=== PATIENT | female | born 1935 | race Caucasian/White ===

== ENCOUNTER 2019-09-29 13:00 | Inpatient (IN) | payer OTHER ==
[2019-09-29] VITALS (8 sets, daily range): BP systolic 64–119; BP diastolic 32–65
[~2019-09-29] VITALS: Ht 162.6 cm; Wt 74.8 kg
[2019-09-29] MEDS ORDERED: ESCITALOPRA5 MG/5 ML PO (13:17)
[2019-09-29] MEDS ORDERED: LIPITOR10 MG PO (13:18)
[2019-09-29] MEDS ORDERED: COZAAR 25 MG TA25 M2 PO (13:18)
[2019-09-29 13:42] LABS: MCH 30.8 pg (26.0-34.0); MCHC 31.7 g/dL (28.0-37.0); NUCLEATED RBCS 0 /100WBC; PLATELET COUNT* 254 thou/uL (150-400); RBC 2.16 mil/uL (4.20-5.00); RDW-CV 22.4 % (10.5-14.5); WBC 17.2 thou/uL (4.0-11.0)
[2019-09-29 13:49] LABS: HEMOGLOBIN 6.7 gm/dL (12.0-15.0)
[2019-09-29 13:52] LABS: APTT 31.1 Seconds (25.0-31.3); INR 1.1; PROTIME 11.5 Seconds (9.20-11.50)
[2019-09-29 13:53] LABS: CALCIUM 8.4 mg/dL (8.5-10.1); CREATININE 1.3 mg/dL (0.6-1.3); POTASSIUM 3.7 mmol/L (3.5-5.1)
[2019-09-29 14:02] LABS: ALBUMIN 2.8 g/dL (3.4-5.0); MAGNESIUM 2.2 mg/dL (1.8-2.4); TOTAL BILIRUBIN 1.5 mg/dL (<0.1-1.0); TOTAL PROTEIN 7.3 g/dL (6.4-8.2)
[2019-09-29 14:21] LABS: ABSOLUTE LYMPHOCYTES 0.9 thou/uL (0.8-5.3); ABSOLUTE MONOCYTES 0.5 thou/uL (0.0-1.2); ABSOLUTE NEUTROPHILS 15.8 thou/uL (1.6-8.1); METAMYELOCYTES 2 %; MYELOCYTES 3 %
[2019-09-29 14:22] LABS: ANISOCYTOSIS 2+; PLATELET ESTIMATE ADEQUATE; POIKILOCYTOSIS 2+; POLYCHROMASIA 1+
[2019-09-29 15:53] LABS: BE -10.4 mmol/L (-2 to +3); PO2 78.4 mmHg (75.0-100.0)
[2019-09-29 15:54] LABS: PCO2 59.2 mmHg (35.0-45.0)
[2019-09-29 15:59] LABS: pH 7.109 (7.340-7.450)
[2019-09-29 17:06] LABS: INFLUENZA A ANTIGEN Negative (Negative); INFLUENZA B ANTIGEN Negative (Negative)
[2019-09-29 22:22] LABS: HEMATOCRIT 22.2 % (37.0-47.0); HEMOGLOBIN 7.2 gm/dL (12.0-15.0)
[2019-09-29 22:40] LABS: ABSOLUTE LYMPHOCYTES 0.3 thou/uL (0.8-5.3); ABSOLUTE MONOCYTES 0.3 thou/uL (0.0-1.2); ABSOLUTE NEUTROPHILS 17.2 thou/uL (1.6-8.1); BASOPHILS 0.1 %; HEMATOCRIT 22.2 % (37.0-47.0); HEMOGLOBIN 7.2 gm/dL (12.0-15.0); LYMPHOCYTES 1.5 %; MCH 30.4 pg (26.0-34.0); MCHC 32.4 g/dL (28.0-37.0); MONOCYTES 1.6 %; MPV 9.8 fl. (7.2-11.1); NUCLEATED RBCS 0 /100WBC; PLATELET COUNT* 224 thou/uL (150-400); POLYS 96.8 %; RBC 2.36 mil/uL (4.20-5.00); RDW-CV 25.4 % (10.5-14.5); WBC 17.8 thou/uL (4.0-11.0)
[2019-09-29 23:04] LABS: PCO2 47.3 mmHg (35.0-45.0); pH 7.323 (7.340-7.450)
[2019-09-29 23:08] LABS: PO2 26.1 mmHg (75.0-100.0)
[2019-09-30] VITALS (7 sets, daily range): BP systolic 95–151; BP diastolic 43–58
--- NOTE | 2019-09-30 08:03 | NUR ---
PT CARE ASSUMED AT 1930. SAT MAINTAINED IN BIPAP. PT IS UNCOPERATIVE. DENIES PAIN. CALL LIGHT WITHIN REACH AND BED IN LOW POSITION. ALERT AND ORIENTED X4. BP LOW, PHYSICIAN INFORMED, ORDERS FOLLOWED. HOURLY ROUNDING DONE FOR PT SAFETY.
--- NOTE | 2019-09-30 10:58 | EKG ---
[place] [address] ELECTROCARDIOGRAM REPORT Name: FARHAD IVAN Room: [address] ADM IN M.R.#: [id number] Admission: 09/29/19 Attend Phys: Raf Perez MD Discharge: Date of : 39 Report #: [id number] THIS REPORT FOR: //name// [facility] ED Test Date: 2019-09-29 Test Time: 13:13:24 Pat Name: FARHAD IVAN Department: Room: [facility] Gender: F Tractor Trailer Operator: DRU : 1935 Requested By: Luis Carlos Goyal Order Number: [id number] MD: Geovanny Singh Measurements Intervals [place] Rate: 116 P: -13 GA: 146 QRS: 51 QRSD: 87 T: 241 QT: 277 QTc: 385 Interpretive Statements Sinus tachycardia Multiple premature complexes, vent & supraven Aberrant complex Probable LVH with secondary repol abnrm Repol abnrm, global ischemia, diffuse leads No previous ECG available for comparison Electronically Signed On 09-30-2019 10:58:22 PRINTING ROLLER POLISHER by Geovanny Singh [email or web address] <ELECTRONICALLY SIGNED> By: Geovanny Singh MD, FACC 09/30/19 1058 1313 1313 Geovanny Singh MD, FAC /EPI
--- NOTE | 2019-09-30 14:30 | NUR ---
MET WITH PT AND DTR/LUIGI. PT ON BIPAP SO DTR ANSWERED QUESTIONS. PT LIVES WITH LUIGI. SHE IS NORMALLY FAIRLY INDEPENDENT. DTR STATES PT IS A VERY 'PRIVATE' PERSON AND DOES HER OWN ADLS, BATHING AND DRESSING. DTR DOES IADLS IN HOME AND DRIVES. PT HAS HAD HH IN PAST BUT CANNOT REMEMBER NAME OF AGENCY. THERE ARE STAIRS TO ENTER THE HOME AND PT IS ABLE TO NEGOTIATE THEM. USES WALKER, HAS 2. SCOOTER, NEBULIZER, GRAB BARS, HOSPITAL BED, TOILET RISER AND RAILS AT [employer]. PT DOESN'T HAVE A DPOA, BUT DTR THINKS SHE MIGHT BE INTERESTED IF DISCUSSED MORE. STATES IN THE PAST PT NOT WILLING TO GIVE ANYONE 'POWER' OVER HER. CM TO FOLLOW
[2019-09-30 14:55] LABS: CREATININE 1.4 mg/dL (0.6-1.3); POTASSIUM 3.2 mmol/L (3.5-5.1)
--- NOTE | 2019-09-30 15:05 | 2DMMODE ---
[place] [address] 2 D/M-MODE ECHOCARDIOGRAM Name: FARHAD IVAN Room: [address] IN [facility]#: [id number] Admission: 09/29/19 Attend Phys: Raf Perez, Discharge: Date of : 39 Date of Service: 09/30/19 1504 Report #: [id number] THIS REPORT FOR: //name// APPROVED REPORT Study performed: 09/30/2019 11:34:17 EXAM: Comprehensive 2D, Doppler, and color-flow Echocardiogram Patient Location: In-Patient Room #: [facility] Status: routine BSA: 1.70 HR: 119 bpm BP: 106/43 mmHg Rhythm: NSR Other Information Study Quality: Good Indications Dyspnea 2D Dimensions IVSd: 10.64 (7-11mm) LVOT Diam: 19.00 (18-24mm) LVDd: 52.70 mm PWd: 10.62 (7-11mm) Ascending Ao: 28.32 (22-36mm) LVDs: 29.40 (25-40mm) Aortic Root: 25.70 mm Volumes Left Atrial Volume (Systole) LA ESV Index: 27.00 mL/m2 Aortic Valve AoV Peak Jacoby.: 1.94 m/s AO Peak Gr.: 15.07 mmHg LVOT Max P.49 mmHg AO Mean Gr.: 8.00 mmHg LVOT Mean P.12 mmHg LVOT Max V: 1.27 m/s AO V2 VTI: 34.53 cm LVOT Mean V: 0.80 m/s LOLIS (VTI): 2.07 cm2 LVOT V1 VTI: 25.26 cm Mitral Valve E/A Ratio: 0.94 MV Decel. Time: 161.61 ms MV E Max Jacoby.: 1.26 m/[place] [address] 2 D/M-MODE ECHOCARDIOGRAM Name: FARHAD IVAN Room: [address] IN .R.#: [id number] Admission: 09/29/19 Attend Phys: Raf Perez, Discharge: Date of : 39 Date of Service: 09/30/19 1504 Report #: [id number] MV PHT: 46.87 ms MVA (PHT): 4.69 cm2 TDI E/Lateral E': 15.75 E/Medial E': 12.60 Medial E' Jacoby.: 0.10 m/s Lateral E' Jacoby.: 0.08 m/s Pulmonary Valve PV Peak Jacoby.: 1.09 m/s PV Peak Gr.: 4.79 mmHg Tricuspid Valve RAP Estimate: 5.00 mmHg TR Peak Gr.: 35.19 mmHg RVSP: 40.00 mmHg PA Pressure: 40.00 mmHg Left Ventricle The left ventricle is normal size. There is normal LV segmental wall motion. Mild concentric left ventricular hypertrophy. Left ventricular systolic function is normal. LVEF is 55-60%. Transmitral Doppler flow pattern suggests restrictive physiology. Right Ventricle The right ventricle is normal size. The right ventricular systolic function is normal. Atria The left atrium size is normal. The right atrium size is normal. Aortic Valve Mild aortic valve sclerosis. No aortic regurgitation is present. There is no aortic valvular stenosis. Mitral Valve The mitral valve is normal in structure. Mild mitral regurgitation. No evidence of mitral valve stenosis. Tricuspid Valve The tricuspid valve is normal in structure. Mild tricuspid regurgitation. The RVSP is 40-45 mmHg. Pulmonic Valve The pulmonary valve is normal in structure. There is no pulmonic [place] [address] 2 D/M-MODE ECHOCARDIOGRAM Name: FARHAD IVNA Room: [address] [facility]#: [id number] Admission: 09/29/19 Attend Phys: Raf Perez, Discharge: Date of : 39 Date of Service: 09/30/19 1504 Report #: [id number] Great Vessels The aortic root is normal in size. IVC is normal in size and collapses >50% with inspiration. Pericardium There is no pericardial effusion. <Conclusion> The left ventricle is normal size. Mild concentric left ventricular hypertrophy. Left ventricular systolic function is normal. LVEF is 55-60%. Transmitral Doppler flow pattern suggests restrictive physiology. Mild aortic valve sclerosis. There is no aortic valvular stenosis. Mild mitral regurgitation. Mild tricuspid regurgitation. The RVSP is 40-45 mmHg. <ELECTRONICALLY SIGNED> By: Geovanny Singh MD, FACC 09/30/19 1504 1504 1504 Geovanny Singh MD, FACC /INF
--- NOTE | 2019-09-30 17:53 | NUR ---
CAITLIN RESTING IN BED. BIPAP USAGE PRN TODAY. OFF BIOPAP AND ON 3L NASAL CANULA FOR ABOUT 6 HOURS TODAY. SINUS RHYTHM TO SINUS TACH TODAY. DOES NOT WANT NEEDLE STICKS FOR LAB DRAWS [place] IS WILLING TO HAVE IT DONE. DNR STATUS ADRESSED TODAY. HOURY ROUNDONG COMPLETED FOR PATIENT SAFETY.
[2019-10-01] VITALS: BP 144/60
[2019-10-01 04:25] VITALS: BP 117/71
[2019-10-01 05:10] LABS: ABSOLUTE LYMPHOCYTES 0.4 thou/uL (0.8-5.3); ABSOLUTE MONOCYTES 0.3 thou/uL (0.0-1.2); ABSOLUTE NEUTROPHILS 7.2 thou/uL (1.6-8.1); HEMATOCRIT 23.1 % (37.0-47.0); HEMOGLOBIN 7.6 gm/dL (12.0-15.0); LYMPHOCYTES 5.7 %; MCH 30.6 pg (26.0-34.0); MCHC 32.9 g/dL (28.0-37.0); MCV 92.9 fL (80.0-100.0); MONOCYTES 3.4 %; MPV 8.9 fl. (7.2-11.1); NUCLEATED RBCS 1 /100WBC; PLATELET COUNT* 214 thou/uL (150-400); POLYS 90.9 %; RBC 2.48 mil/uL (4.20-5.00); RDW-CV 24.7 % (10.5-14.5); WBC 7.9 thou/uL (4.0-11.0)
[2019-10-01 05:27] LABS: CALCIUM 8.2 mg/dL (8.5-10.1); CREATININE 1.3 mg/dL (0.6-1.3); POTASSIUM 3.7 mmol/L (3.5-5.1)
--- NOTE | 2019-10-01 06:16 | NUR ---
PATIENT SHOWING LITTLE PROGRESS TOWARD GOALS THIS SHIFT. PATIENT IS VERBALLY ABUSIVE TOWARD STAFF. PATIENT HAS CALLED [employer]OMOT[employer] SERVICE WRITER[employer]S "DISGUSTING" "HORRIBLE PEOPLE" "FUCKING TERRIBLE". PATIENT REPEATEDLY EXPRESSES DESIRE TO LEAVE THE HOSPITAL AND QUESTIONS HER OUTLOOK ON HER HEALTH. PATIENT WAS OFF BIPAP FOR ABOUT 3 HOURS UNTIL GETTING HERSELF WORKED UP ABOUT HAVING BLOOD DRAWN AGAIN. PATIENT DEVELOPED DIFFICULTY BREATHING AROUND 0500 AND HAD TO BE PLACED ON BIPAP AGAIN AT THAT TIME. PATIENT IS INCONTINENT AND EXPRESSES HATEFUL REMARKS TOWARD STAFF WHEN BEING CLEANED.
[2019-10-01 07:30] VITALS: BP 137/49
[2019-10-01 07:32] VITALS: BP 137/49
[2019-10-01 12:00] VITALS: BP 140/65
--- NOTE | 2019-10-01 12:19 | NUR ---
CONTINUE TO FOLLOW, MET [facility] PT. SHE WAS FRUSTRATED WITH CARES, NOT IMPROVING AND PRAYING FOR ANSWERS. SUPPORT GIVEN. DISCUSSED WITH NURSE. PT'S MAIN C/O TODAY WAS RIGHT EAR PAIN, NURSE AWARE AND STATED PT HAS HAD TYLENOL. PT IS VERY ADAMANT ABOUT HER RIGHTS AND NEEDS, STATES SHE MANAGES WELL AT HOME AND MAKES HER OWN DECISIONS. UPDATED DR WITH PT'S EAR CONCERN ALSO. NOT APPROPRIATE TIME TO DISCUSS DPOA. DID NOTE PT IS DNR. WILL FOLLOW
[2019-10-01 14:06] LABS: GLOBULIN TOTAL 3.4 g/dL (2.2-3.9); M-SPIKE Not Observed g/dL (Not Observed)
--- NOTE | 2019-10-01 15:59 | NUR ---
ASSUMED CARE OF PT AT 0730. PT A&0X4, UNCOOPERATIVE AND ARGUMENTATIVE THIS AM- MORE COOPERATIVE AND PLEASANT THIS AFTERNOON. PT COMPLAINED OF PAIN TO RIGHT EAR- TREATED WITH PRN TYLENOL WITHOUT RELIEF. DR PEDERSON NOTIFIED. ORDERS RECEIVED FOR NAPROXEN PER PT REQUEST AND GIVEN PER EMAR. PT MADE MED SURG STATUS. ON BIPAP THIS AM AND PRN- ON 2L NC SAT UPPER 90'S. PT HAS PRODUCTIVE COUGH- COARSE AND WHEEZY LUNG SOUNDS NOTED. PT INCONT OF URINE. PT UP WITH 1 ASSIST-WEAKNESS NOTED. CARDIOLOGY SIGNED OFF-RECOMMENDING OUTPT STRESS TESTING AT DISCHARGE. AM ASSESSMENT CHARTED. MEDICATIONS PER DEC. PT REFUSED TO BE REPOSITIONED THIS AM- EDUCATION GIVEN. PT COOPERATIVE WITH TURNS THIS AFTERNOON. HOURLY ROUNDING OBSERVED. BED IN LOW POSITION. BED ALARM IN PLACE. FALL PRECAUTIONS IN PLACE. CALL LIGHT WITHIN REACH. WILL CONTINUE PLAN OF CARE.
--- NOTE | 2019-10-01 18:57 | NUR ---
PT TRANSFERRED TO ROOM 311 VIA BED WITH ALL BELONGINGS AND CHART. REPORT GIVEN TO MICHAEL JOSEPH. DAUGHTER, LUIGI, NOTIFIED OF TRANSFER.
[2019-10-01 21:00] VITALS: BP 122/57
--- NOTE | 2019-10-02 05:53 | NUR ---
PATIENT WAS A TRANSFER FROM [facility] RIGHT AT SHIFT CHANGE. BEGINNING OF SHIFT SHE WAS VERY ANGRY AND UPSET STATING NO ONE WAS TELLING HER WHAT WAS GOING ON. DAUGHTER WAS IN THE ROOM AND STATED SHE WOULD TAKE HER HOME IF THATS REALLY WHAT HER MOM WANTED. EXPLAINED TO PATIENT AND DAUGHTER THAT IT WAS IN HER BEST INTEREST TO STAY IN THE HOSPITAL DUE TO OXYGEN AND BIPAP NEEDS. PATIENT WAS AGREEABLE TO STAY. PATIENT STILL YELLS AT STAFF WHEN CLEANING HER UP STATING WE ARE HURTING HER AND AND WHY CANT WE JUST LEAVE HER ALONE AND LET HER . IV ANTIBIOTICS WERE GIVEN ORDERED. PATIENT WORE BIPAP FOR A COUPLE HOURS AND IS BACK ON OXYGEN AT 2L PER NASAL CANNULA. WILL CONTINUE TO MONITOR.
[2019-10-02 08:05] VITALS: BP 96/66
--- NOTE | 2019-10-02 15:15 | CON ---
[address] [address] CONSULTATION Name: FARHAD IVAN Room: [address] IN M.R.#: [id number] Admission: 09/29/19 Attend Phys: Raf Perez MD Discharge: Date of : 37 Report #: [id number] THIS REPORT FOR: //name// CC: Raf Cody MD DICTATED BY: Hailey Hurley [facility] DATE OF SERVICE: 09/30/2019 Please note at the time of this dictation, the patient was seen and physically examined by myself. REASON FOR CONSULTATION: Acute anemia. HISTORY OF PRESENT ILLNESS: This is an 83-year-old female who had recently had some cold-like symptoms a week prior to her coming to the hospital to the Emergency Room where she was having increasing shortness of breath, audible wheezing. She was coughing up a lot of phlegm and was having a difficult time completing her sentences to conversation. The patient was last seen by us in 2009 in which she underwent an EGD and colonoscopy. Colonoscopy showed a tubular adenoma with repeat in 5 years. EGD showed an esophageal stricture. She was dilated with 48-Bulgarian and has not been seen since 2009. In talking with her daughter, she states that she is chronically anemic running in the 7 to 8 most of the time. On admission, hemoglobin was 6.7. She got a unit of blood. She continues to have increasing shortness of breath in conversation and at the bedside and had been on BiPAP overnight. ALLERGIES: No known drug allergies. MEDICATIONS FROM HOME: Lipitor, Lexapro, and Cozaar. PAST MEDICAL HISTORY: CHF, COPD, anemia, high blood pressure, high cholesterol. PAST SURGICAL HISTORY: She has had a stent and endarterectomy done. FAMILY HISTORY: Negative for any GI or female cancers. SOCIAL HISTORY: Never has smoked. No alcohol and no illegal drug use. REVIEW OF SYSTEMS: Twelve-point review of systems is essentially negative except what is mentioned in the HPI. PHYSICAL EXAMINATION: VITAL SIGNS: Temperature 36.7, pulse 79, respirations 16, [place] [address] CONSULTATION Name: IVANFARHAD J Room: [address] IN [facility]#: [id number] Admission: 09/29/19 Attend Phys: Raf Perez MD Discharge: Date of : 37 Report #: [id number] 106/43. HEART: Regular rate and rhythm. LUNGS: Audible wheezing and shortness of breath noted at bedside. ABDOMEN: Soft, positive bowel sounds in all 4 quadrants with no masses or tenderness noted. LABORATORY DATA: Hemoglobin after a unit of blood is 7.2, white count is 17.8, platelets 224. B12 is 1264. Ferritin is 231. Iron sat is 13. Iron is 25. Troponin is elevated at 0.91. Her BNP was elevated at 6505, BUN was 35. GFR was 39. Total bilirubin was 1.5, alkaline phosphatase 88, ALT 12, AST is 10. Chest x-ray showed cardiomegaly. IMPRESSION: 1. Acute on chronic anemia. 2. Respiratory failure. 3. Congestive heart failure. 4. Chronic obstructive pulmonary disease. 5. Leukocytosis. 6. Chronic kidney disease. PLAN: 1. The patient does not want any invasive procedures done, EGD or colonoscopy to evaluate her anemia. 2. We will check a soluble transferrin level. 3. Further recommendations to be made after that level has returned and Dr. Rothman has seen the patient. Thank you for allowing us to participate in this patient's care. Please do not hesitate to call with any questions in regard to this consult. <ELECTRONICALLY SIGNED> By: Pritesh Rothman MD 10/02/19 1515 1106 1211Pritesh Rothman MD /nt
[2019-10-02 16:00] VITALS: BP 106/54
[2019-10-02 17:37] LABS: HEMOGLOBIN 7.8 gm/dL (12.0-15.0)
[2019-10-02 17:39] LABS: HEMATOCRIT 24.5 % (37.0-47.0); MCH 30.4 pg (26.0-34.0); MCHC 32.1 g/dL (28.0-37.0); MCV 94.7 fL (80.0-100.0); NUCLEATED RBCS 0 /100WBC; PLATELET COUNT* 199 thou/uL (150-400); RBC 2.58 mil/uL (4.20-5.00); RDW-CV 24.8 % (10.5-14.5); WBC 7.6 thou/uL (4.0-11.0)
--- NOTE | 2019-10-02 17:40 | NUR ---
PATIENT RESTING IN BED. PATIENT HAD COMPLAINTS OF EAR PAIN THIS AM, NAPROXEN GIVEN WITH NO FURTHER COMPLAINTS OF PAIN. PATIENT IS UP WITH MODERATE ASSIST OF 1 WITH GAIT BELT AND WALKER. PATIENT HAS POOR APPETITE BUT DRINKS WELL. PATIENT DENIES ANY NEEDS AT THIS TIME. CALL LIGHT WITHIN REACH.
[2019-10-02 17:43] LABS: CALCIUM 7.9 mg/dL (8.5-10.1); CREATININE 1.8 mg/dL (0.6-1.3)
[2019-10-02 17:46] LABS: POTASSIUM 2.8 mmol/L (3.5-5.1)
--- NOTE | 2019-10-02 18:23 | EKG ---
[place] [address] ELECTROCARDIOGRAM REPORT Name: FARHAD IVAN Room: [address] ADM IN M.R.#: [id number] Admission: 09/29/19 Attend Phys: Raf Perez MD Discharge: Date of : 37 Report #: [id number] THIS REPORT FOR: //name// [facility] Test Date: 2019-10-02 Test Time: 16:41:15 Pat Name: FARHAD MARZENA Department: Room: [address] Gender: F Record Pressman: : 1935 Requested By: Armaan Acosta Order Number: [id number] Iar MD: Geovanny Singh Measurements Intervals [place] Rate: 108 P: 56 [place]: 167 QRS: 47 QRSD: 89 T: 214 QT: 290 QTc: 389 Interpretive Statements Sinus tachycardia Multiple premature atrial complexes Probable LVH with secondary repol abnrm Compared to ECG 09/29/2019 13:13:24 Aberrant conduction of supraventricular beat(s) no longer present Electronically Signed On 10-02-2019 18:22:39 PRODUCT APPLICATIONS ENGINEER by Geovanny Singh [email or web address] <ELECTRONICALLY SIGNED> By: Geovanny Singh MD, FACC 10/02/19 1822 1641 1641 Geovanny Singh MD, FAC /EPI
[2019-10-02 18:45] LABS: ABSOLUTE LYMPHOCYTES 1.7 thou/uL (0.8-5.3); ABSOLUTE MONOCYTES 0.5 thou/uL (0.0-1.2); ABSOLUTE NEUTROPHILS 5.4 thou/uL (1.6-8.1)
[2019-10-02 18:46] LABS: MICROCYTES 1+; OVALOCYTES 1+; PLATELET ESTIMATE ADEQUATE; TEARDROPS Occasional
[2019-10-02 18:47] LABS: ANISOCYTOSIS 2+; HYPOCHROMASIA 2+
[2019-10-02 18:48] LABS: SCHISTOCYTES Occasional
[2019-10-02 20:00] VITALS: BP 116/41
[2019-10-03] VITALS (7 sets, daily range): BP systolic 90–135; BP diastolic 48–65
--- NOTE | 2019-10-03 02:18 | NUR ---
ASSUMED CARE OF PT AFTER REPORT AT 1930. PT A&OX4. FORGETFUL. VSS. PHYSICAL ASSESMENT COMPLETED AND CHARTED. PT ON O2 AT 2L NC/BIPAP WHEN SLEEPING. PT DENIES ANY PAIN OR DISCOMFORT. PT HR 160'S. EKG SHOWS SVT. DR PEDERSON MADE AWARE. TRANSFERRED TO TELE VIA BED WITH BELONGINGS.
--- NOTE | 2019-10-03 05:34 | NUR ---
PATIENT TRANSFERRED TO UNIT AT APPROX 0215 WITH SUSTAINED HR OF 150-160'S. PATIENT ASYMPTOMATIC. PHYSICIAN NOTIFIED THAT IV METOPROLOL CANNOT BE GIVEN DUE TO LOW BLOOD PRESSURE. ORDER DC'D AND ORDER RECEIVED AND CARRIED OUT FOR AMIODARONE GTT AND BOLUS. PATIENT HEART RATE IMPROVING SLIGHTLY. CALL LIGHT WITHIN REACH
--- NOTE | 2019-10-03 11:41 | NUR ---
PT CALLED FOR ASSIST TO USE BR. ASSISTED PT TO BSC. PT BELIGERENT TO STAFF AND STATES SHE WANTS TO WALK TO BR. INSTRUCTED PT AND DTR THAT SHE IS TOO UNSTEADY,HR HIGH AND SOA TO SAFELY AMBULATE TO BR AT THIS TIME. PT ASSISTED TO BSC. PT INSISTS ON WEARING BRIEFS. PT AND DTR INSTRUCTED ON RISK OF SKIN BREAKDOWN AND STILL REQUEST TO WEAR BRIEFS
--- NOTE | 2019-10-03 11:56 | NUR ---
HF COUNSELING: ENTERED ROOM TO TALK ABOUT HEART FAILURE. GAVE PATIENT HANDOUT HIGHLIGHTING THE MEDICATION REGIMEN THE PATIENT IS CURRENT TAKING WHICH ONLY INCLUDES FUROSEMIDE AT THIS TIME. DISCUSSED THIS SPECIFIC MEDICATION HELPS HER BODY OR DIAGNOSIS INCLUDING HOW IT WORKS, HOW IT HELPS AND POSSIBLE SIDE EFFECTS. AT END OF DISCUSSION Pt. HAD NO QUESTIONS AT THIS TIME. ASKED THEM TO TALK TO INDUSTRIAL AERIAL INSTALLER OR PHARMACIST IF THEY HAVE ANY QUESTIONS POST DISCHARGE.
--- NOTE | 2019-10-03 12:19 | EKG ---
[place] [address] ELECTROCARDIOGRAM REPORT Name: FARHAD IVAN Room: [address] ADM IN M.R.#: [id number] Admission: 09/29/19 Attend Phys: Raf Perez MD Discharge: Date of : 37 Report #: [id number] THIS REPORT FOR: //name// [facility] Test Date: 2019-10-03 Test Time: 01:15:13 Pat Name: FARHAD IVAN Department: Room: [address] Gender: F Marketing Consultant: [id number] : 1935 Requested By: Raf Perez Order Number: [id number] Reading MD: Francois Zelaya Measurements Intervals [place] Rate: 166 P: 103 UT: 55 QRS: 33 QRSD: 91 T: 185 QT: 274 QTc: 456 Interpretive Statements Supraventricular tachycardia Ventricular premature complex LVH with secondary repolarization abnormality ST depression, probably rate related Compared to ECG 10/02/2019 16:41:15 Ventricular premature complex(es) now present ST (T wave) deviation now present Sinus tachycardia no longer present Atrial premature complex(es) no longer present Electronically Signed On 10-03-2019 12:19:45 CDL BULK DRIVER by Francois Zelaya [email or web address] <ELECTRONICALLY SIGNED> By: Francois Zelaya MD, [facility] 10/03/19 1219 4 4 Francois Zelaya MD, [facility] /EPI
--- NOTE | 2019-10-03 13:30 | NUR ---
PT BELIGERENT WITH PT AND REFUSED TO PARTICIPATE. ENCOURAGED PT TO MOVE WHILE IN BED. DISCUSSED POSSIBILITY OF REHAB UPON DC. PT STATES SHE WILL NOT GO TO REHAB UNIT OR SNF.
--- NOTE | 2019-10-03 14:11 | NUR ---
CONTINUE TO FOLLOW, MET WITH PT'S DTR/LUIGI. PLAN IS FOR PT TO RETURN TO HOME BUT IS VERY WEAK. THERAPY ORDERED. PT SLEEPING. IS ON AMIO GTT, DO NOT ANTICIPATE DC THIS WEEKEND. MAY NEED SNF IF PT AGREEABLE. WILL FOLLOW
--- NOTE | 2019-10-03 17:32 | NUR ---
PT NOT EATING THROUGHOUT SHIFT. PT STATES SHE DOES NOT LIKE THE FOOD BECAUSE IT IS TOO BLAND. ENCOURAGED FAMILY TO BRING FOOD IN. PT DRINKING WATER. PT REFUSES THERAPY. BELIGERENT TO STAFF WHEN ASSISTANCE OFFERED. DTR AT AND UPDATED ON PLAN OF CARE.AMIODARONE GTT INFUSING, PT INTERMITTENT AFLUTTER ON MONITOR
[2019-10-04 04:00] VITALS: BP 139/55
--- NOTE | 2019-10-04 06:12 | NUR ---
ASSUMED CARE OF PT AFTER REPORT AT 1930. PT A&OX4. VSS. PHYSICAL ASSESSMENT COMPLETED AND CHARTED. PT ON O2 AT 3L NC/BIPAP WHEN SLEEPING. PT TRACING ST/SR/PAC OM TELE. PT DENIES PAIN. PT REFUSED TURNS EVEN AFTER EDUCATION. PT HAS A CRITICAL RIDGE BLOOD GLUCOSE- DR PAYNE MADE AWARE WITH NEW ORDER. PT ABLE TO SLEEP WELL ON BED. CALL LIGHT WITHIN REACH.
[2019-10-04 08:30] VITALS: BP 95/43
[2019-10-04 12:01] VITALS: BP 102/48
[2019-10-04 15:37] VITALS: BP 108/57
[2019-10-04 20:00] VITALS: BP 116/49
[2019-10-05] VITALS (7 sets, daily range): BP systolic 81–128; BP diastolic 39–67
--- NOTE | 2019-10-05 02:09 | NUR ---
ASSUMED CARE OF PT AFTER REPORT AT 1930. PT A&OX4. FORGETFUL. VSS. PHYSICAL ASSESSMENT COMPLETED AND CHARTED. PT ON O2 AT 3L NC/BIPAP WHEN SLEEPING. PT TURNED TO SIDES. PT WITH EPISODES OF INCONTINENT BOWEL & BLADDER. DENIES ANY PAIN. PT ABLE TO SLEEP WELL ON BED. CALL LIGHT WITHIN REACH.
[2019-10-05 04:38] LABS: HEMATOCRIT 23.5 % (37.0-47.0); HEMOGLOBIN 7.7 gm/dL (12.0-15.0); MCH 30.1 pg (26.0-34.0); MCHC 32.6 g/dL (28.0-37.0); MCV 92.3 fL (80.0-100.0); MPV 8.8 fl. (7.2-11.1); RBC 2.55 mil/uL (4.20-5.00); RDW-CV 23.8 % (10.5-14.5); WBC 15.3 thou/uL (4.0-11.0)
[2019-10-05 05:19] LABS: CREATININE 1.3 mg/dL (0.6-1.3); POTASSIUM 4.3 mmol/L (3.5-5.1)
--- NOTE | 2019-10-05 17:06 | NUR ---
PT CARE ASSUMED AT 0730. ALERT AND ORIENTED X4 BUT FORGETFUL. DAUGHTER PRESENT AT BEDSIDE. PT IS GRUMPY WITH THE CARE OFFERED BY THE NURSING STAFF TO HER. INCONTINENT OF BOWEL AND BLADDER. EDUCATION GIVEN ABOUT TURNS BOTTOM IS RED, NEEDS REINFORCEMENT. CALL LIGHT WITHIN REACH AND BED IN LOW POSITION.
[2019-10-06 03:45] VITALS: BP 96/42
--- NOTE | 2019-10-06 07:39 | NUR ---
Pt is AOx4, running SR with PVCs/PACs on telemetry, respirations are even and unlabored. Pt is not in acute distress at this time.
[2019-10-06 08:11] VITALS: BP 115/39
--- NOTE | 2019-10-06 09:40 | NUR ---
ASSUMED CARE OF PT THIS AM AROUND 07- CORRECTIONS NURSE IN PLACE ORDERED, TRACING SR- UPON ASSESSMENT PT NOTED TO BE RESTING IN BED, EYES CLOSED- PT ARROUSABLE AND A&O X4 WITH SOME FORGETFULLNESS- INCONTIENT OF B/B- Q 2HOUR TURNS IN PLACE INDICATED- LCTA/DIMINISHED IN BASES, ABD BREATHING NOTED- DYSPNEA NOTED ON EXERTION- VSS, O2 SAT 96% ON 3L VIA NC- ABD SOFT/ROUND/NON-TENDER, BS X4 QUADS- PT NOTED TO HAVE HAD INCONTINENT LOOSE STOOL THIS AM- IV NOTED TO LEFT FA INTACT AND SL- IV ABT CHANGED TO PO CEFDINIR THIS AM WELL IV SOLU-MED TO PO PREDNISONE AND GIVEN PRESCIBED- CHEST X-RAY ORDERED THIS AM- EKG COMPLETED ORDERED AND PLACED ON CHART FOR VIEWING- CALL LIGHT AND PERSONAL BELONGINGS WITH IN REACH- BED ALARM IN PLACE AND WORKING FOR PT SAFETY/NEEDS- ALL NEEDS MET AT THIS TIME-WCTM
--- NOTE | 2019-10-06 11:04 | EKG ---
[place] [address] ELECTROCARDIOGRAM REPORT Name: FARHAD IVAN Room: [address] ADM IN M.R.#: [id number] Admission: 09/29/19 Attend Phys: Raf Perez MD Discharge: Date of : 39 Report #: [id number] THIS REPORT FOR: //name// [facility] Test Date: 2019-10-06 Test Time: 09:15:02 Pat Name: FARHAD IVAN Department: Room: [address] Gender: F Pen Maker: : 1935 Requested By: Chel Riley Order Number: [id number] Reading MD: Ollie Pearce Measurements Intervals [place] Rate: 81 P: 37 PA: 176 QRS: 32 QRSD: 91 T: 104 QT: 379 QTc: 440 Interpretive Statements Sinus rhythm Multiple premature complexes, supraven Probable LVH with secondary repol abnrm Compared to ECG 10/03/2019 01:15:13 Supraventricular tachycardia no longer present ST (T wave) deviation no longer present Electronically Signed On 10-06-2019 11:04:07 CLIENT SERVER DEVELOPER by Ollie Pearce [email or web address] <ELECTRONICALLY SIGNED> By: Ollie Pearce MD, [facility] 10/06/19 1104 4 4 Ollie Pearce MD, [facility] /EPI
[2019-10-06 12:06] VITALS: BP 88/41
--- NOTE | 2019-10-06 15:57 | NUR ---
WOUND NURSE: PATIENT SEEN TODAY TO ADDRESS LESION ON RIGHT HAND, LEFT HEEL, AND POSSIBLY BUTTOCKS. LEFT POSTERIOR HEEL WITH SKIN LESION CONTAINING PARTIAL THICKNESS TISSUE LOSS, SCANT SEROUS DRAINAGE, TENDER TO TOUCH, MEASURES 3.5 X 2.5 X 0.1 CM. CLEANSED WITH SOAP AND WATER, RINSED WITH WATER, THEN PATTED DRY. APPLIED LOTION TO PERIWOUND, APPLIED OIL EMULSION GAUZE TO WOUND BED, UNDER ABD, WRAPPED WITH KERLEX ROLL GAUZE AND SECURED WITH TAPE. PLAN TO CHANGE DRESSING EVERY 3 DAYS AND NEEDED. PATIENT PLACED IN HEELMEDIX HEEL PROTECTOR. HAS A 0.1 X 1.0 X 0.1 CM SKIN TEAR ON THE BACK OF THE RIGHT HAND. THERE IS NO DRAINAGED NOTED AND SKIN EDGES ARE WELL APPROXIMATED. BORDERED FOAM DRESSING IN PLACE FROM YESTERDAY AND REUSED . PATIENT VERY CANTANKEROUS AND REFUSING ANY FURTHER ASSESSMENT INCLUDING ASSESSMENT OF BUTTOCKS OR COCCYGEAL AREA.
[2019-10-06 17:09] VITALS: BP 82/42
[2019-10-06 20:00] VITALS: BP 116/48
[2019-10-07 00:38] VITALS: BP 92/39
--- NOTE | 2019-10-07 04:16 | NUR ---
Pt is aox4, running SR with PACs on telemetry, respirations are shallow, but unlabored. Pt is not in acute distress at this time.
[2019-10-07 04:30] VITALS: BP 100/36
--- NOTE | 2019-10-07 10:25 | NUR ---
PT REFUSING VS AND MEDICATIONS THIS AM. PT ANGRY AND CURSING STAFF.
[2019-10-07 12:15] VITALS: BP 140/37
--- NOTE | 2019-10-07 13:36 | NUR ---
LONG DISCUSSION WITH PT'S 2 DTRS/EDGAR AND LUIGI THIS AM RE: REFERRAL TO HOSPICE HOUSE. DTRS THOUGHT PT WOULD GO TO A HOSPICE HOUSE JAIL. EXPLAINED QUALIFIERS AND ALL OPTIONS FOR HOSPICE INCLUDING HOUSE, HOME AND LTC ALL WITH HOSPICE. THEY WERE ONLY OPEN TO HOUSE OPTION. AGAIN EXPLAINED THAT THAT IS ONLY FOR 5 DAYS OR SO AND THEN ANOTHER PLAN NEEDS TO BE IN PLACE. PT LIVES WITH DTR/LUIGI BUT SHE WORKS AND THERE IS NO ONE TO BE PT'S PRIMARY CAREGIVER. DTR/EDGAR PLANS TO RETURN HOME TO [place]. THEY ARE AGAINST LTC. OFFERED A HOSPICE HOUSE REFERRAL, PT NOT GETTING ANY COMFORT MEDS OR MEDS TO CONTROL SYMPTOMS THEREFORE WOULD NOT BE ELIGIBLE FOR HOSPICE [facility]. THEY WERE IN AGREEMENT WITH REFERRAL TO [facility] FOR RESPITE SHORT STAY AND EVAL. CALLED AND FAXED REFERRAL TO [facility], MARIEL CAME OUT AND MET WITH DTR/EDGAR AND PT. THEY ARE ABLE TO ACCEPT PT AT [place] FOR A 5 DAY RESPITE STAY AND SHE DID EXPLAIN TO THEM THAT ANOTHER PLAN NEEDS TO BE IN PLACE FOR AFTER THAT 5 DAYS AND THEIR SW WILL ASSIST. EDGAR WANTS TO TALK PLAN OVER WITH THE REST OF THE FAMILY AND HAVE AN ANSWER TOMORROW. BOTH DTRS VERY FOCUSED ON THINGS THAT HAVE OCCURRED DURING THIS STAY THAT THEY WERE UNHAPPY WITH. MUCH REDIRECTION NEEDED DURING CONVERSTAIONS. GILDA/PT EXPERIENCE AND MGR AWARE. SUPPORT OFFERED. WILL F/U TOMORROW WITH FAMILY AND PT
[2019-10-07 16:00] VITALS: BP 75/36
--- NOTE | 2019-10-07 16:51 | NUR ---
PT UNCOOPERATIVE THROUGHOUT THE DAY. REFUSING CARE. BECOMES ANGRY AND VERBALLY ABUSIVE TO STAFF. PT WAS INCONT OF B/B AND REFUSED TO BE CLEANED. EXPLAINED TO PT THAT I WOULD NOT LEAVE HER THAT WAY. PT CLEANED UP WHILE SHE WAS VERBALLY ABUSING STAFF. DAUGHTERS AT BEDSIDE THROUGHOUT THE DAY.
[2019-10-07 20:30] VITALS: BP 74/46
[2019-10-08] VITALS: BP 109/48
[2019-10-08 04:00] VITALS: BP 163/47
--- NOTE | 2019-10-08 05:42 | NUR ---
Pt is aox4, running SR with PACs on telemetry, respirations are even and unlabored. Pt is not in acute distress at this time.
[2019-10-08 08:30] VITALS: BP 122/42
--- NOTE | 2019-10-08 09:20 | NUR ---
assuming patient care report given patient seen at bedside, in recliner asleep
[2019-10-08 12:00] VITALS: BP 148/77
--- NOTE | 2019-10-08 13:05 | NUR ---
WOUND CARE NOTE: PATIENT HAD DECLINED TO ALLOW FOR ASSESSMENT OF THE SACRUM/COCCYX ON SUNDAY. AGAIN ATTEMPTED TO ASSESS AREA, BUT PATIENT DECLINED. STATING THERE WASN'T ANYTHING BACK THERE AND IT DID NOT HURT. ALLOWED ME TO CHANGE THE DRESSING TO THE LEFT HEEL. WOUND WITH PINK, MOIST WOUND BED. HAIR-WOUND APPEARS TO HAVE NEW EPITHELIUM. CLEANSED WITH WOUND CLEANSER, PATTED DRY. APPLIED OIL EMULSION GAUZE, ABD AND SECURED WITH KERLIX. SPOKE WITH PATIENT'S DAUGHTER. SHE STATED THE PATIENT HAS PSORIASIS AND SOMETIMES THE SKIN PEELS TOO MUCH REVEALING WOUNDS. THE DAUGHTER STATES THIS WOUND COMES AND GOES. RECOMMEND KEEP HEEL ELEVATED OFF BED TURN Q2 HOURS ENCOURAGE GOOD NUTRTION/HYDRATION NOTIFY WOUND RN IF PATIENT WILLING FOR ASSESSMENT OF THE SACRUM/COCCYX.
--- NOTE | 2019-10-08 13:27 | NUR ---
DISCUSSED WITH DR MORALES AND DTR/LUIGI. PT AND FAMILY IN AGREEMENT WITH DC TO [facility] , WILL PLAN DC TOMORROW. DTR AWARE. ALSO DISCUSSED LTC MEDICAID PENDING AND GAVE LIST OF FACILITIES FOR DTR TO CONSIDER. UPDATED [facility]. WILL ARRANGE DC ONCE ORDERS RECEIVED
[2019-10-08 16:00] VITALS: BP 89/36
[2019-10-08 20:00] VITALS: BP 88/51
[2019-10-09] VITALS: BP 91/45
[2019-10-09 04:00] VITALS: BP 108/45
--- NOTE | 2019-10-09 04:47 | NUR ---
PT CARE ASSUMED AT 1930. SAT MAINTAINED IN O2. ALERT AND ORIENTED X4 BUT FORGETFUL. CALL LIGHT WITHIN REACH AND BED IN LOW POSITION. HOURLY ROUNDING DONE FOR PT SAFETY.
[2019-10-09 08:15] VITALS: BP 158/53
--- NOTE | 2019-10-09 11:50 | NUR ---
DISCUSSED WITH DR MORALES, PT TO DC TODAY TO [facility] FOR RESPITE STAY. DTRS OUT LOOKING AT LTC OPTIONS AND CALL PLACED TO DTR/LUIGI, AWARE OF DC TODAY. PT IN AGREEMENT. OUTSIDE DNR SIGNED AND ON CHART WITH COPY TO GO WITH PT. 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 RN HAS NUMBER TO CALL REPORT. CHART COPIED. [id number] COMPLETED AND SENT WITH PT. ORDERS FAXED
[2019-10-09 12:21] VITALS: BP 148/52
[2019-10-09] MEDS ORDERED: CEFDINIR300 MG PO (12:27)
[2019-10-09] MEDS ORDERED: PANTOPRAZOLE SO40 M1 PO (12:27)
[2019-10-09] MEDS ORDERED: XANAX 0.5 MG0.5 MG PO (12:27)
[2019-10-09] MEDS ORDERED: GLUCOPHAGE500 MG PO (12:27)
[2019-10-09] MEDS ORDERED: PREDNISONE 10 M10 MG PO (12:27)
[2019-10-09] MEDS ORDERED: PULMICORT0.5 MG/2 M INH (12:27)
[2019-10-09] MEDS ORDERED: LEVALBUTER1.25 MG/0. INH (12:27)
[2019-10-09] MEDS ORDERED: LASIX 40 MG TAB40 M1 PO (12:27)
[2019-10-09] MEDS ORDERED: ASPIR 8181 MG PO (12:27)
[2019-10-09] MEDS ORDERED: NAPROXEN375 MG PO (12:27)
[2019-10-09] MEDS ORDERED: MUCUS RLF DM E1 EACH PO (12:27)
[2019-10-09] MEDS ORDERED: ONDANSETRON HCL4 M2 PO (12:27)
[2019-10-09] MEDS ORDERED: PACERONE 200 M200 M1 PO (12:27)
[2019-10-09] MEDS ORDERED: BENZONATATE100 MG PO (12:27)
[2019-10-09] MEDS ORDERED: REMERON15 MG PO (12:27)
[2019-10-09 13:50] VITALS: BP 148/52
--- NOTE | 2019-10-09 15:10 | NUR ---
I ASSUMED CARE OF THE PATIENT AT 0700. SHE IS ALERT AND ORIENTED X4 AND IS UP WITH ASSIST OF 2, A WALKER AND A GAITBELT. BED IS IN THE LOW LOCKED POSITION AND CALL LIGHT IS IN REACH. HOURLY ROUNDING IS COMPLETED AND PATIENT NEEDS ARE MET. PAIN IS MANAGED WITH PRN MEDS. SHE REFUSES EDUCATION, SOME MEDICATIONS, ACHS FINGER STICKS AND INSULIN AT TIMES. SHE IS DISCHARGING TO HOSPICE CARE AT [facility]. SHE WAS TRANSPORTED VIA WHEELCHAIR VAN AT 1440. REPORT WAS CALLED TO BO. SCRIPT WAS SENT IN HER PACKET.
--- NOTE | 2019-10-11 14:34 | CON ---
[address] [address] CONSULTATION Name: FARHAD IVAN Room: [address] IN M.R.#: [id number] Admission: 09/29/19 Attend Phys: Raf Perez MD Discharge: 10/09/19 Date of : 39 Report #: [id number] THIS REPORT FOR: //name// CC: [facility] DATE OF SERVICE: 09/30/2019 REASON FOR CONSULTATION: Anemia. REQUESTING PHYSICIAN: Dr. Perez. This is a late entry. The patient was on 09/30/2019. HISTORY OF PRESENT ILLNESS: The patient is an 83-year-old lady with multiple medical problems including COPD, CHF, anemia, who was admitted to the hospital with the shortness of breath and COPD exacerbation. She was found to have anemia. Hematology consult is requested. She is evaluated on bed with her daughter at bedside. She does not have complaints of weight loss. Denies melena or hematochezia. She says she was at [facility] where she was advised that she had anemia. She had a colonoscopy. A GI workup was done, which was unremarkable. She has not seen Hematology. She does not have any complaints of weight loss. Denies back pain. PAST MEDICAL HISTORY: Significant for COPD, CHF, anemia, she does have hyperlipidemia. PAST SURGICAL HISTORY: Stent and endarterectomy. SOCIAL HISTORY: Noncontributory. FAMILY HISTORY: Noncontributory. PHYSICAL EXAMINATION: GENERAL: Reveals an elderly female, in mild acute distress because of shortness of breath. VITAL SIGNS: Blood pressure is 141/54, heart rate is 103, respirations 18, and temperature 98.7. HEENT: Does not reveal thrush. HEART: Normal S1, S2. LUNGS: Mild wheezing. There is no supraclavicular or axillary lymphadenopathy. MENTAL STATUS: Alert and oriented, has hearing loss. EXTREMITIES: Lower extremities, no edema. SKIN: Does not reveal rash. LABORATORY DATA: White count 17.2, hemoglobin 6.7, MCV 97, platelets ____, 64% [place] [address] CONSULTATION Name: IVANFARHAD J Room: [address]#: [id number] Admission: 09/29/19 Attend Phys: Raf Perez MD Discharge: 10/09/19 Date of : 39 Report #: [id number] neutrophils, 23% bands, 5% lymphocytes, 3% monocytes, 2% metamyelocytes, 3% myelocytes. Total protein is 7.7, albumin 2.8, creatinine of 1.3, BUN 35. ASSESSMENT AND PLAN: 1. Anemia. We will consult Urology at this point. B12, folate is normal. Ferritin is not suggestive of iron deficiency. Plan is to order urine protein electrophoresis. She might need a bone marrow biopsy. We will do it as an outpatient. 2. Leukocytosis. This was before she initiates steroids in the hospital. She is not taking prednisone at home. She ____. Thank you very much for allowing me to participate in care of this patient. I will follow. <ELECTRONICALLY SIGNED> By: Tiffany Armendariz MD 10/11/19 1434 [id number] Lilliana De Anda MD /nt
== END 2019-10-09 14:49 | disposition hospice, home (50) | DRG 871 ==
LOC: M.ERS 13:00 → M.2W 14:13 → M.TBA-ER 14:13 → M.2W 16:55 → M.3W 10-01 19:15 → M.2W 10-03 02:24
PROVIDERS: Emergency Medicine Emergency Medical Services; Family Medicine; Internal Medicine Hematology & Oncology; ADMIT Internal Medicine
PROC: 5A09457 Assistance with Respiratory Ventilation, 24-96 Consecutive Hours, Continuous Positive Airway Pressure (ICD-10-PCS; principal; 2019-09-29)
PROC: 30233N1 Transfusion of Nonautologous Red Blood Cells into Peripheral Vein, Percutaneous Approach (ICD-10-PCS; principal; 2019-09-29)
PROC: 5A09457 Assistance with Respiratory Ventilation, 24-96 Consecutive Hours, Continuous Positive Airway Pressure (ICD-10-PCS; 2019-10-02)
PROC: 5A09357 Assistance with Respiratory Ventilation, Less than 24 Consecutive Hours, Continuous Positive Airway Pressure (ICD-10-PCS; 2019-10-04)
PROC: 5A09357 Assistance with Respiratory Ventilation, Less than 24 Consecutive Hours, Continuous Positive Airway Pressure (ICD-10-PCS; 2019-10-05)
PROC: 5A09357 Assistance with Respiratory Ventilation, Less than 24 Consecutive Hours, Continuous Positive Airway Pressure (ICD-10-PCS; 2019-10-06)
PROC: 5A09357 Assistance with Respiratory Ventilation, Less than 24 Consecutive Hours, Continuous Positive Airway Pressure (ICD-10-PCS; 2019-10-07)
PROC: 5A09357 Assistance with Respiratory Ventilation, Less than 24 Consecutive Hours, Continuous Positive Airway Pressure (ICD-10-PCS; 2019-10-08)
PROC: 5A09357 Assistance with Respiratory Ventilation, Less than 24 Consecutive Hours, Continuous Positive Airway Pressure (ICD-10-PCS; 2019-10-09)
DX: A41.9 Sepsis, unspecified organism (principal); I21.A1 Myocardial infarction type 2; J18.9 Pneumonia, unspecified organism; J96.22 Acute and chronic respiratory failure with hypercapnia; J96.21 Acute and chronic respiratory failure with hypoxia; J44.1 Chronic obstructive pulmonary disease with (acute) exacerbation; J44.0 Chronic obstructive pulmonary disease with (acute) lower respiratory infection; E87.2 Acidosis; I13.0 Hypertensive heart and chronic kidney disease with heart failure and stage 1 through stage 4 chronic kidney disease, or unspecified chronic kidney disease; I48.92 Unspecified atrial flutter; I50.9 Heart failure, unspecified; E78.00 Pure hypercholesterolemia, unspecified; L89.152 Pressure ulcer of sacral region, stage 2; E78.5 Hyperlipidemia, unspecified; B34.9 Viral infection, unspecified; N18.9 Chronic kidney disease, unspecified; D72.829 Elevated white blood cell count, unspecified; I48.0 Paroxysmal atrial fibrillation; D50.9 Iron deficiency anemia, unspecified; Z66 Do not resuscitate; E11.22 Type 2 diabetes mellitus with diabetic chronic kidney disease; E11.51 Type 2 diabetes mellitus with diabetic peripheral angiopathy without gangrene; E11.65 Type 2 diabetes mellitus with hyperglycemia; Z79.4 Long term (current) use of insulin; Z95.5 Presence of coronary angioplasty implant and graft; Z79.899 Other long term (current) drug therapy; Z87.891 Personal history of nicotine dependence; Z79.82 Long term (current) use of aspirin